=== PATIENT | male | born 1975 | race Caucasian/White ===

== ENCOUNTER 2023-11-07 13:44 | Inpatient (IN) | payer OTHER, SELFPAY ==
[2023-11-07] VITALS (136 sets, daily range): BP systolic 99–127; BP diastolic 68–90; PULSE 66–89; RESP 12–25; TEMP 36.6–36.8; O2SAT 98–100
--- NOTE | 2023-11-07 14:15 | DI.CT_ITS ---
Exam(s) CT ABDOMEN PELVIS W EXAM: CT ABDOMEN PELVIS W CLINICAL HISTORY: vomiting, diarrhea, hx of obstructions. TECHNIQUE: Imaging Protocol: Axial computed tomography images with coronal and sagittal reformatted images were created and reviewed CONTRAST MATERIAL: Intravenous: Omnipaque 350 Contrast volume:100 ml Oral: no COMPARISON: No exams were available for comparison FINDINGS: ABDOMEN and PELVIS: Lung Bases: No acute findings. Liver: Normal density. No suspicious mass. Gallbladder and biliary tract: No radiodense calculus. No biliary dilation. Pancreas: Normal density. No abnormal calcifications or inflammatory process. No evidence of mass. Spleen: Normal. Kidneys: Normal size, contour and axis. No radiodense stones. No obstructive uropathy. No suspicious masses seen. Adrenal glands: No masses seen. Vasculature: Abdominal aorta non-dilated. Soft tissues: Small bilateral fatty containing inguinal hernias. Bladder: No gross wall thickening. No calculi.No focal mass. Bowel: Fluid and air noted within the colon. Abnormally dilated loops of small bowel on the right si de of the abdomen a some fluid and feculent material. Transition zone in terminal ileum. Question o f some wall thickening of terminal ileum. No pneumatosis. Appendix normal. Peritoneal cavity: Small amount of fluid in the low pelvis. No focal collection. No mesenteric infla mmatory response. Bones: Lucency seen in the right side of the sacrum. Comparison with prior exams recommended if not available, MRI could be considered for further evaluation. Reproductive organs: Unremarkable. Lymph nodes: Multiple scattered mesenteric lymph nodes, likely reactive. IMPRESSION:: Findings consistent with small-bowel obstruction with transition point at the terminal ileum. The colon is fluid filled. Lucency in the sacrum. Comparison with prior exams recommended. If none are available, MRI could be considered for further evaluation. Unexpected findings RADIATION DOSE DELIVERED: Total DLP DATA REPOSITORY: All CT scans at this facility are submitted to the National Radiology Data Registry (NRDR) Dose Index Registry (DIR) with the [employer] (ACR). RADIATION OPTIMIZATION: All CT scans at this facility use at least one of these dose optimization te chniques: automated exposure control; mA and/or kV adjustment per patient size (includes targeted exa ms where dose is matched to clinical indication); or iterative reconstruction.
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
[2023-11-07] MEDS: Lactated Ringers 1,000 ML 1000 ML IV (14:53)
[2023-11-07 14:58] LABS: Abs Immature Grans 0.02 10^3/uL (0.0-0.06); Absolute Basophil Count 0.02 10^3/uL (0.0-0.2); Absolute Eosinophil Count 0.08 10^3/uL (0.0-0.7); Absolute Lymphocyte Count 0.95 10^3/uL (1.2-3.4); Absolute Monocyte Count 0.39 10^3/uL (0.1-0.8); Absolute Neutrophil Count 4.48 10^3/uL (1.2-6.7); Basophils % 0.3 %; Eosinophils % 1.3 %; HCT 40.6 % (40.0-50.0); HGB 13.4 g/dL (13.5-17.5); Immature Grans % 0.3 %; MCV 82 fL (80-95); Monocytes % 6.6 %; Neutrophils % 75.5 %; Platelet Count 223 10^3/uL (130-400); RBC 4.97 10^6/uL (4.36-5.78); RDW 13.1 % (11.8-14.1); RDW-SD 38.6 fL; WBC 5.94 10^3/uL (4.4-10.8)
[2023-11-07] MEDS: MORPHine 4 MG/ML SYR IVP (15:03)
[2023-11-07] MEDS: Ondansetron 4 MG/2 ML VIAL IVP ×2 (15:03→21:48)
[2023-11-07 15:12] LABS: ALT 29 U/L (16-63); AST 23 U/L (15-37); Albumin 3.8 g/dL (3.4-5.0); Alkaline Phosphatase 78 U/L (46-116); BUN 14 mg/dL (7-18); Bilirubin, Total 0.4 mg/dL (0.2-1.0); CREATININE 1.6 mg/dL (0.70-1.30); Calcium 8.7 mg/dL (8.5-10.1); Chloride 104 mmol/L (98-107); Estimated GFR 53.15 (mL/min/1.73m2); Glucose 101 mg/dL (74-106); Lipase 29 U/L (16-77); Magnesium 2.2 mg/dL (1.8-2.4); Potassium 3.4 mmol/L (3.5-5.1); Sodium 140 mmol/L (136-145); Total Protein 7.8 g/dL (6.4-8.2)
[2023-11-07] MEDS: Omnipaque 350 MG/ML 100 ML BTL IJ (15:12)
[2023-11-07] MEDS: Normal Saline - Diluent 50 ML VIAL IJ (15:13)
[2023-11-07 15:36] LABS: Bilirubin Negative (Negative); Blood Negative (Negative); Clarity Clear (Clear); Glucose Negative (Negative); Ketones Negative (Negative); Leukocyte Esterase Negative (Negative); Nitrite Negative (Negative); Urobilinogen 0.2 mg/dL (Up to 0.2)
--- NOTE | 2023-11-07 16:13 | DI.VRAD_ITS ---
PROCEDURE INFORMATION: Exam: CT Abdomen And Pelvis With Contrast Exam date and time: 11/07/2023 3:01 PM Age: 48 years old Clinical indication: Patient HX: Vomiting, diarrhea, HX of obstructions TECHNIQUE: Imaging protocol: Computed tomography of the abdomen and pelvis with contrast. COMPARISON: No relevant prior studies available. FINDINGS: Diaphragm: Small hiatal hernia. Liver: Normal. No mass. Gallbladder and bile ducts: Normal. No calcified stones. No ductal dilation. Pancreas: Normal. No ductal dilation. Spleen: Normal. No splenomegaly. Adrenal glands: Normal. No mass. Kidneys and ureters: Normal. No hydronephrosis. Stomach and bowel: Dilated small bowel loops reaching 3.8 cm in maximum caliber with transition zone in the ileum (series 4, image 36). No bowel masses are seen. Mild dilatation of the colon, filled with fluid but no transition zone. Appendix: No evidence of appendicitis. Intraperitoneal space: Mild amount free fluid in the pelvis. Vasculature: Unremarkable. No abdominal aortic aneurysm. Lymph nodes: Unremarkable. No enlarged lymph nodes. Urinary bladder: Unremarkable as visualized. Reproductive: Unremarkable as visualized. Bones/joints: Mild degenerative disease of bilateral sacroiliac joints. Mild degenerative disease of bilateral hip joints. Soft tissues: Bilateral fat containing inguinal hernias. IMPRESSION: 1. Small bowel obstruction with transition zone in the terminal ileum. No bowel masses. No pneumatosis intestinalis or perforation. THIS REPORT CONTAINS FINDINGS THAT MAY BE CRITICAL TO PATIENT CARE. The findings were verbally communicated via telephone conference with RYAN SHELDON at 4:12 PM EDT on 11/07/2023. The findings were acknowledged and understood. Dictated and Authenticated by: Janak Hernandez MD. Ordering:BOAZ Ibarra MD
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
[2023-11-07] MEDS: ACETAMINOPHEN 1,000 MG/100 ML BTL 400 MG IVPB (16:36)
[2023-11-07] MEDS: Ketorolac 15 MG/ML VIAL IVP (16:36)
[2023-11-07] MEDS: Enoxaparin 40 MG/0.4 ML SYR SC (17:41)
[2023-11-07] MEDS: Normal Saline 1,000 ML 100 ML IV (18:04)
[2023-11-07] MEDS: MORPHine 2 MG/ML SYR IVP ×2 (19:21→23:59)
[2023-11-07] MEDS: Normal Saline Flush 10 ML SYR IVP (19:22)
--- NOTE | 2023-11-07 19:38 | TELEP.MEDR_ITS ---
Date of service: 11/07/23 Time of Service: 19:38 Telepharmacy Home Med Rec Allergies Allergies: No Known Allergies Allergy (Unverified 11/07/23 13:50) Interview Person Interviewed: Pt and Quality Quality of Interview/Accuracy of Medication List: Good Changes made to Home Medication List: ADDITIONS: * Buspirone * Cetirizine * Cholecalciferol * Fluoxetine * MVI * Naproxen * Omeprazole * Ondansetron * Propranolol * Quetiapine * Sumatriptan * Vitron-C DELETIONS: None CHANGES: None Additional Notes Additional Notes: Pt's reports poor compliance with cholecalciferol and that Vitron-C was a very recent addition. Recommended Changes Recommended Changes(reason for recommendation): None. Attestation: The home medication list is now updated to the best of my knowledge and is ready to be reconciled by the provider. Please contact the TelePharmacy Medication Reconciliation Pharmacist at for any questions.
[2023-11-07] MEDS: Gastrografin 120 ML BTL PO (21:47)
[2023-11-07] MEDS: Lactated Ringers 1,000 ML 120 ML IV (21:48)
[2023-11-08 04:27] VITALS: BP 100/59; PULSE 64; RESP 18; TEMP 36.7; O2SAT 96
[2023-11-08] MEDS: MORPHine 2 MG/ML SYR IVP ×3 (04:29→12:20)
[2023-11-08] MEDS: Lactated Ringers 1,000 ML 120 ML IV (05:43)
[2023-11-08 06:17] LABS: Abs Immature Grans 0.01 10^3/uL (0.0-0.06); Absolute Basophil Count 0.02 10^3/uL (0.0-0.2); Absolute Eosinophil Count 0.12 10^3/uL (0.0-0.7); Absolute Lymphocyte Count 1.39 10^3/uL (1.2-3.4); Absolute Monocyte Count 0.26 10^3/uL (0.1-0.8); Basophils % 0.5 %; Eosinophils % 2.9 %; HCT 35.2 % (40.0-50.0); HGB 11.9 g/dL (13.5-17.5); Immature Grans % 0.2 %; Lymphocytes % 33.9 %; MCHC 33.8 % (32.0-36.0); MCV 80 fL (80-95); MPV 10.1 fL (8.0-11.0); Monocytes % 6.3 %; Neutrophils % 56.2 %; Platelet Count 214 10^3/uL (130-400); RDW 13.1 % (11.8-14.1); RDW-SD 37.4 fL
[2023-11-08 06:32] LABS: Anion Gap 7.3 mmol/L (3-11); BUN 11 mg/dL (7-18); CO2 28.7 mmol/L (21.0-32.0); CREATININE 1.4 mg/dL (0.70-1.30); Calcium 8.4 mg/dL (8.5-10.1); Chloride 107 mmol/L (98-107); Estimated GFR 62.39 (mL/min/1.73m2); Glucose 95 mg/dL (74-106); Potassium 3.2 mmol/L (3.5-5.1); Sodium 143 mmol/L (136-145)
--- NOTE | 2023-11-08 07:00 | DI.RAD_ITS ---
Exam(s) XR ABDOMEN FLAT UPRIGHT EXAM: 2D digital imaging was performed. CLINICAL HISTORY: sbo. COMPARISON: CT CT ABDOMEN PELVIS W from 11/07/2023 TECHNIQUE: Supine and upright views of the abdomen were performed. Oral contrast was administered. FINDINGS: Oral contrast is noted from the stomach through the level of the splenic flexure. The amount of meg l dilatation has significantly improved. There is mild dilatation of loops of small bowel in the lef t upper quadrant. Some air-fluid levels are present in the colon. Fluid was noted on prior CT. The re is residual contrast in the bladder from prior CT. No free air. Visualized portions of chest: Unremarkable. IMPRESSION: Marked improvement in degree of small bowel dilatation contrast is seen extending to the splenic flex ure of the colon. DATA REPOSITORY: RADIATION DOSE DELIVERED:
[2023-11-08] MEDS: Normal Saline Flush 10 ML SYR IVP ×2 (07:42→12:21)
[2023-11-08 07:44] VITALS: BP 111/72; PULSE 82; RESP 17; TEMP 36.7; O2SAT 94
--- NOTE | 2023-11-08 09:15 | INITIAL_ITS ---
Date of service: 11/08/23 Time of Service: 09:16 Care Management Initial Assmt Initial Assessment REASON FOR HOSPITALIZATION:: SBO PREVIOUS FUNCTIONAL STATUS/SOCIAL/FAMILY SUPPORTS:: Gus lives in [place] with his Wilma and her mother. He is a disabled and is 100% service connected. Gus receives 11 hours a week of home health aide services which provides assistance with housework, food preparation and bathing if needed. He uses a cane and a walker for ambulatory assistance. Gus is fairly independent with ADLs and can usually bathe, feed and dress himself. CURRENT FUNCTIONAL STATUS:: Gus was sitting up in be visiting with his when CM met with him. He informed Cm that he will be discharged soon. He stated the doctor was working on his paperwork at that time. Gus is well connected with [facility] services and did not identify any unmet needs. ADVANCE DIRECTIVES:: none on file Has patient been provided with info about the portal/API?: Yes Did the patient sign up for the portal?: No CODE STATUS:: Full Code INSURANCE COVERAGE / FINANCIAL ISSUES:: [facility] PRIMARY CARE PHYSICIAN:: Franchesca Bernard POTENTIAL DISCHARGE NEEDS:: follow up with surgeon and plan of care PATIENT/FAMILY EDUCATION NEEDS:: Review of discharge instructions, limitations, follow up plan, discuss Ask Me Three TRANSPORTATION:: via private vehicle with family PLAN:: Anticipate Gus will be discharged home with a resumption of his home health aide services provided through the [facility], when medically ready. He will follow up with his PCP, surgeon and plan of care and transport with family. CM will follow and continue to support discharge planning needs. 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 He can still walk. 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 (Acute) Bilateral inguinal hernia without obstruction or gangrene (Acute) Small bowel obstruction (Acute) Social History Smoking/Tobacco Use Status: Never Smoking risk assessment performed?: Yes Alcohol Intake: former Substance use type: does not use Housing: house AZOH(Care Management) Screening Will the Patient Participate in the Screening?: Yes Do you worry about having a steady place to live?: no In the past 12 months, have you had to go without electric, gas, oil or water in your home?: no Have you or anyone in your house had to go without enough food to eat?: no Has lack of transportation kept you from medical appointments or from doing things needed for daily living?: no Has anyone in your support network made you feel unsafe for any reason?: no
[2023-11-08 12:13] VITALS: BP 108/66; PULSE 88; RESP 18; TEMP 36.7; O2SAT 97
--- NOTE | 2023-11-08 13:44 | DSE_ITS ---
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 He underwent a CT scan that raise the possibility of a partial small bowel obstruction. His vital signs and lab tests were reassuring, he was admitted to the hospital for observation. Not long thereafter, he did have some liquid bowel movements. He was kept n.p.o., and underwent another x- ray the next day that demonstrated marked improvement with the small bowel dilation, and contrast extending into the distal colon. He was discharged home after tolerating regular diet Home Meds and New Rx's Prescriptions: Continued buspirone 5 See Rx Instructions .ROUTE .COMPLEX Rx Instructions: 10 mg in am, 10 mg at noon, 15 mg at hs; quetiapine 400 mg tablet 400 mg PO QHS propranolol 40 mg tablet 40 mg PO BID omeprazole 20 mg capsule,delayed release(DR/EC) 20 mg PO BID sumatriptan succinate [Imitrex] 100 mg tablet 100 mg PO ONCE Rx Instructions: Repeat in 2 hours prn ondansetron 4 mg tablet,disintegrating 4 mg PO BID PRN (Reason: nausea and vomiting) Rx Instructions: prn n/v from migraine; repeat in 30-60 minutes if needed naproxen sodium 550 mg tablet 550 mg PO BID PRN fluoxetine 10 mg capsule 30 mg PO QAM cholecalciferol (vitamin D3) 1,000 unit PO DAILY Patient Comments: says he is not good about taking Vitron-C 65 mg iron- 125 mg tablet,delayed release (DR/EC) 1 tab PO DAILY multivitamin [Daily Multi-Vitamin] Tablet 1 tab PO DAILY cetirizine 10 mg tablet 10 mg PO HS PRN Discharge Instructions Instructions: Bowel Obstruction (DC) Activity:: Activity as Tolerated Equipment/Supplies:: No Equipment Needed Diet:: As Tolerated DS: Summary Time Spent with Patient providing and/or coordinating discharge services: Less than 30 minutes Status at Discharge Functional status at discharge: uses cane/walker Overall status at discharge: patient is back to baseline Mental Status: mental status grossly normal Speech and Movement: speech and movement normal Mood: congruent mood Affect: normal affect Quality:SDOH Health Related Social Needs: No Data to Display Exam GI Other: Abdomen is soft and nondistended. He is not tympanitic. He has good bowel sounds Psych Mental Status: mental status grossly normal Speech and Movement: speech and movement normal Mood: congruent mood Affect: normal affect DS: Data Vitals/I&O Vitals and I&O: Vital Signs Temperature 98.1 F 11/08/23 12:13 Temperature Source Tympanic 11/08/23 12:13 Pulse 88 11/08/23 12:13 Pulse Rhythm Regular 11/08/23 08:00 Respiratory Rate 18 11/08/23 12:13 Respiratory Effort Normal, Non-Labored 11/08/23 08:00 Respiratory Depth Normal 11/08/23 08:00 Respiratory Pattern Normal 11/08/23 08:00 Blood Pressure 108/66 11/08/23 12:13 Blood Pressure Position Sitting 11/07/23 13:51 Pulse Oximetry 97 11/08/23 12:13 Oxygen Delivery Method Room Air 11/08/23 12:13 Oxygen Flow Rate 0 11/08/23 12:13 Pain Level 7 11/08/23 12:20 Comment pins and needles 11/07/23 14:00 Intake & Output 11/07/23 11/08/23 11/08/23 23:59 11:59 23:59 Intake Total 1473.333 / 1473.333 950 / 950 Output Total 600 / 600 200 / 200 Balance 873.333 / 873.333 950 / 750 -200 / 750 Weight 220 lb 14.451 oz 220 lb 3.869 oz Intake: IV 1473.333 / 1473.333 950 / 950 Output: Urine 600 / 600 200 / 200 Other: Urine Color Yellow Yellow Yellow Urine Appearance Clear Clear Clear Urine Odor Normal Stool Size Moderate Small Stool Characteristics Soft Liquid Brown Voiding Methods Toilet Toilet Toilet Data Completed and Pending Labs on day of discharge: Labs from last 24 hours 11/08/23 11/07/23 11/07/23 06:02 15:25 14:44 WBC 4.10 L 5.94 RBC 4.40 4.97 Hgb 11.9 L 13.4 L Hct 35.2 L 40.6 MCV 80 82 MCH 27.0 27.0 MCHC 33.8 33.0 RDW 13.1 13.1 Plt Count 214 223 MPV 10.1 10.0 Immature Gran % 0.2 0.3 Neutrophils % 56.2 75.5 Lymphocytes % 33.9 16.0 Monocytes % 6.3 6.6 Eosinophils % 2.9 1.3 Basophils % 0.5 0.3 Nucleated RBC % 0.0 0.0 Absolute Neutrophils 2.30 4.48 Absolute Lymphocytes 1.39 0.95 L Absolute Monocytes 0.26 0.39 Absolute Eosinophils 0.12 0.08 Absolute Basophils 0.02 0.02 Sodium 143 140 Potassium 3.2 L 3.4 L Chloride 107 104 Carbon Dioxide 28.7 25.0 Anion Gap 7.3 11.0 BUN 11 14 Creatinine 1.4 H 1.6 H Est GFR (CKD-EPI 2020) 62.39 53.15 Glucose 95 101 Calcium 8.4 L 8.7 Magnesium 2.0 2.2 Total Bilirubin 0.4 AST 23 ALT 29 Alkaline Phosphatase 78 Total Protein 7.8 Albumin 3.8 Lipase 29 Urine Color Yellow Urine Clarity Clear Urine pH 6.0 Ur Specific [place] 1.020 Urine Protein Trace Urine Ketones Negative Urine Blood Negative Urine Nitrite Negative Urine Bilirubin Negative Urine Urobilinogen 0.2 Ur Leukocyte Esterase Negative Urine Glucose Negative [facility] All Active Problems PTSD (post-traumatic stress disorder) (Acute) From 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 He can still walk. 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
--- NOTE | 2023-11-08 14:13 | W.PM.PROGNOT ---
Date of Service Date of service: 11/08/23 Time of Service: 14:13 Assessment and Plan Assessment and plan (1) Small bowel obstruction: Status: Acute Assessment and plan: Labs are all normal, Gastrografin challenge shows contrast all the way down into the colon. Will advance his diet today, discharge home later assuming he tolerates that okay. Subjective Subjective Interval history since last seen: Harmeet is feeling much better today. He had a bowel movement this morning, and his appetite is starting to improve. Exam GI Other: His abdomen is soft and nondistended. He has normal bowel sounds. He is not tender Objective Last Vital Signs Temp 98.1 F 11/08/23 12:13 Pulse 88 11/08/23 12:13 Resp 18 11/08/23 12:13 BP 108/66 11/08/23 12:13 Pulse Ox 97 11/08/23 12:13 Laboratory Results - last 24 hr 11/07/23 11/07/23 11/08/23 14:44 15:25 06:02 WBC 5.94 4.10 L RBC 4.97 4.40 Hgb 13.4 L 11.9 L Hct 40.6 35.2 L MCV 82 80 MCH 27.0 27.0 MCHC 33.0 33.8 RDW 13.1 13.1 Plt Count 223 214 MPV 10.0 10.1 Immature Gran % 0.3 0.2 Neutrophils % 75.5 56.2 Lymphocytes % 16.0 33.9 Monocytes % 6.6 6.3 Eosinophils % 1.3 2.9 Basophils % 0.3 0.5 Nucleated RBC % 0.0 0.0 Absolute Neutrophils 4.48 2.30 Absolute Lymphocytes 0.95 L 1.39 Absolute Monocytes 0.39 0.26 Absolute Eosinophils 0.08 0.12 Absolute Basophils 0.02 0.02 Sodium 140 143 Potassium 3.4 L 3.2 L Chloride 104 107 Carbon Dioxide 25.0 28.7 Anion Gap 11.0 7.3 BUN 14 11 Creatinine 1.6 H 1.4 H Est GFR (CKD-EPI 2020) 53.15 62.39 Glucose 101 95 Calcium 8.7 8.4 L Magnesium 2.2 2.0 Total Bilirubin 0.4 AST 23 ALT 29 Alkaline Phosphatase 78 Total Protein 7.8 Albumin 3.8 Lipase 29 Urine Color Yellow Urine Clarity Clear Urine pH 6.0 Ur Specific [place] 1.020 Urine Protein Trace Urine Ketones Negative Urine Blood Negative Urine Nitrite Negative Urine Bilirubin Negative Urine Urobilinogen 0.2 Ur Leukocyte Esterase Negative Urine Glucose Negative Time Spent with Patient Time Spent with Patient: <25 minutes Time was spent: preparing to see the patient(eg.review tests), indepentently interpreting results and counseling the patient
--- NOTE | 2023-11-08 17:41 | PDOC.CMDIS ---
Date of service: 11/08/23 Time of Service: 17:41 Care Management Discharge Plan Reason for Hospitalization: SBO SDOH Health Related Social Needs: No Data to Display
== END 2023-11-08 14:40 | disposition home or self-care (01) | DRG 390 ==
LOC: ER 16:28 → MS 17:17
PROVIDERS: Admitting Provider Surgery; Emergency Provider Student in an Organized Health Care Education/Training Program; PCP Internal Medicine; Visit Provider Surgery
DX: K56.600 Partial intestinal obstruction, unspecified as to cause (principal); K40.20 Bilateral inguinal hernia, without obstruction or gangrene, not specified as recurrent; F43.10 Post-traumatic stress disorder, unspecified; F44.6 Conversion disorder with sensory symptom or deficit; M46.1 Sacroiliitis, not elsewhere classified
CPT/HCPCS: 36415; 80048; 80053; 83690; 96361; 96365; 96375; 99285; J1650; 74019; 74177; 81003; 83735; 85025; J0131; J1885; J2270; J2405; J3490